=== PATIENT | male | born 1970 | race Caucasian/White ===

== ENCOUNTER 2018-07-08 10:22 | Outpatient (CLI) | payer OTHER, SELFPAY ==
[2018-07-08] VITALS (14 sets, daily range): BP systolic 112–137; BP diastolic 75–99; PULSE 65–86; RESP 16–18; TEMP 36.7; O2SAT 96–100
--- NOTE | 2018-07-08 10:23 | DI.RAD.S_ITS ---
PROCEDURE: PAIN L/S MED/LAT N RFA BILAT INDICATIONS: SPONDYLOSIS FINDINGS: Fluoroscopic spot filming was performed to verify placement of spinal needles at the bilateral L4, L5, and S1 medial branch nerve root regions, as labeled on the films. Appropriate location(s) of the needle tip(s) was confirmed by injection of iodinated contrast. IMPRESSION: 6 point localization was performed, with needle tip localization in the expected position for bilateral L4, L5, and S1 medial branch nerve root rhizotomy procedures. Dictated by: Anthony Godinez M.D. on 07/08/2018 at 12:29 Approved by: Anthony Godinez M.D. on 07/08/2018 at 12:30
[2018-07-08] MEDS: fentaNYL 100 MCG/2 ML INJ 50 MCG IV (11:20)
[2018-07-08] MEDS: MIDAZOLAM 5 MG/5 ML VIAL IV (11:20)
[2018-07-08] MEDS: LIDOCAINE 1% 20 ML INJ 10 ML INJ (11:47)
[2018-07-08] MEDS: BETAMETHASONE 30 MG/5 ML MDV 12 MG INJ (11:48)
[2018-07-08] MEDS: BUPIVACAINE 0.5% (PF) VIAL 2 ML INJ (11:48)
--- NOTE | 2018-07-08 12:07 | PC.NURSE ---
ASSISTING PT OFF TABLE AND TRANSPORTING TO POST PROC AREA IN STABLE CONDITION
--- NOTE | 2018-07-08 12:11 | PM.PROC.1 ---
Procedures Date/Time Date of procedure: 07/08/18 Time of procedure: 12:11 General Procedure description: PREOP DIAGNOSIS 1. RECALCITRANT FACET ARTHROPATHY, POST OP DIAGNOSIS 1. RECALCITRANT FACET ARTHROPATHY PROCEDURES 1. BILATERAL L4 AND L5 MEDIAL BRANCH RADIOFREQUENCY NEUROTOMY AND S1 DORSAL RAMUS BRANCH RADIOFREQUENCY NEUROTOMY, PHYSICIAN: Zak Dunn DO INDICATIONS: Akshat is referred for treatment of facet arthropathy. DESCRIPTION OF PROCEDURE Bilateral L4 and L5 medial branch radiofrequency neurotomy and S1 dorsal ramus radiofrequency neurotomy under fluoroscopy with conscious sedation. The patient is well known to this clinic having undergone previous facet injections with good but temporary relief. The patient has experienced appropriate, concordant relief with previous facet and median branch blocks but the patient's pain has been recalcitrant to further conservative measures. Therefore, based upon the patient's relief and persistent symptoms, the patient is considered an appropriate candidate for facet rhizotomy. All of the patient's questions regarding the risks versus benefits of the procedure, including, but not limited to, bleeding, infection, temporary as well as lasting nerve injury, paralysis, stroke, and , as well treatment alternatives were answered to satisfaction. After obtaining informed consent, denial of pertinent drug allergies, as well as being made aware of the potential risks of bleeding, infection, spinal cord trauma, paralysis, temporary and permanent nerve damage, seizure, stroke, and possible , the patient was brought to the fluoroscopy suite and positioned prone on the fluoroscopy table. The lumbar region was prepped with Betadine and covered with a fenestrated drape in the usual sterile fashion. Appropriate monitors applied including pulse oximeter, pulse, and blood pressure for regular monitoring throughout the procedure. After review of previous anaesthesic history and IV conscious sedation the patient was deemed safe to proceed with todays procedure with IV conscious sedation as ASA class II designation. Safety time-out was performed to confirm patient ID, procedure to be performed and site of procedure. IV sedation was accomplished with a combination of 5mg of Versed and 50mcg of Fentanyl administered by the RN after DO order, titrated to patient comfort during the course of the procedure while the patient remained responsive to all verbal commands. After local infiltration using 1% lidocaine, under fluoroscopic guidance, a 10-cm RF insulated needle with a 10-mm active tip was positioned parallel to the junction of the right sacral ala and the superior articulating process where the S1 dorsal ramus resides. Needle placement was confirmed with sensory stimulation at 50 Hz, with motor stimulation of .5v on the right which produced local stimulation without radicular component. The stimulation was then increased to 1.5v with, once again, only local multifidus stimulation without radicular component. This was then followed by two discreet lesions performed at 80 degrees Celsius for 90 seconds each. The needle was then removed and the identical procedure was performed along the length of the right L5 medial branch with motor stimulation at .7v on the right. The identical procedure was once again performed along the length of the right L4 medial branch with motor stimulation of .5v on the right. The identical procedure was repeated on the left. The patient tolerated the procedure well without signs or symptoms of complications prior to transfer to the recovery area continued monitoring without incident. The patient was then transferred to the recovery area where they were observed for an appropriate period of time after the injection. The patient reported a VAS score of 9 prior to the procedure and a post-procedure VAS of 0. Total Fluoroscopy Time: 22.7 seconds Total Conscious Sedation Time: 34min POST OP INSTRUCTIONS The patient was provided a Pain Log to continue to record the patient's response to the target-specific procedure prior to the patient's follow-up visit with the referring physician. Additionally, specific post-injection care instructions and a contact number to our office were provided if concerns arise regarding possible complications associated with the procedure are suspected. Zak Dunn DO Complications: none
--- NOTE | 2018-07-08 12:19 | PC.NURSE ---
Pt returned post procedure awake and alert via wheelchair. Pt's past monitoring time but resumed care from Hien MCWILLIAMS.
--- NOTE | 2018-07-09 15:32 | PC.NURSE ---
FOLLOW UP CALL MADE, LEFT PHONE MSG WITH CLINIC NUMBER AND HOURS IN CASE OF QUESTIONS/CONCERNS.
== END 2018-07-08 12:31 ==
LOC: RAD 10:23
PROVIDERS: Visit Provider Physical Medicine & Rehabilitation
DX: M47.817 Spondylosis without myelopathy or radiculopathy, lumbosacral region (principal); M47.816 Spondylosis without myelopathy or radiculopathy, lumbar region
CPT/HCPCS: 64635; 64636; 99152; 99153; J0702; J2250; J3010

== ENCOUNTER → 2019-09-01 07:10 | Outpatient (CLI) | payer OTHER, SELFPAY ==
--- NOTE | 2019-09-01 07:12 | DI.RAD.S_ITS ---
PROCEDURE: XR LUMBAR SPINE MIN 4V INDICATIONS: Acute low back pain TECHNIQUE: 5 views of the lumbar spine were acquired. COMPARISON: None. FINDINGS: Bones: 5 nonrib-bearing vertebrae are present. There is normal bony alignment. No vertebral body compression fractures. No suspicious bony lesions. There is a slight degree of degenerative disc height reduction and facet osteoarthritis at L5-S1. Soft tissues: Overlying bowel gas pattern is normal. No suspicious soft tissue calcifications. Oblique images: No pars defects. IMPRESSION: Minimal L5-S1 degenerative changes, no compression fracture or subluxation seen. Dictated by: Anthony Godinez M.D. on 09/01/2019 at 9:29 Approved by: Anthony Godinez M.D. on 09/01/2019 at 9:29
== END ==
PROVIDERS: Referring Provider Physical Medicine & Rehabilitation; Visit Provider Physical Medicine & Rehabilitation
DX: M54.5 Low back pain (principal); M47.817 Spondylosis without myelopathy or radiculopathy, lumbosacral region
CPT/HCPCS: 72110

== ENCOUNTER → 2019-12-22 06:28 | Outpatient (CLI) | payer OTHER, SELFPAY ==
--- NOTE | 2019-12-22 06:30 | DI.MRI.S_ITS ---
PROCEDURE: MR LUMBAR SPINE WO CON INDICATIONS: LBP with radiculopathy TECHNIQUE: Noncontrast sagittal T1 spin echo and T2 fast echo, sagittal STIR, axial T1 and T2 fast spin echo through the lumbar spine. In cases with scoliosis, additional coronal T2 fast spin echo may be performed. COMPARISON: [facility], MR, MR LUMBAR SPINE WO CON, 07/12/2016, 13:50. [facility], CR, XR LUMBAR SPINE MIN 4V, 09/01/2019, 6:13. FINDINGS: Image quality: Excellent. Alignment and Curvature: 5 lumbar type vertebral bodies are present by plain film. There is mild grade 1 retrolisthesis of L2 on L3, L3 on L4, L4 on L5, and L5 on S1. Bone Marrow: Marrow is of normal overall signal. No acute vertebral body compression fractures. There is mild reactive signal within the endplates adjacent to the L2-L3 and L3-L4 intervertebral discs. Spinal Cord: Conus medullaris terminates at the T12-L1 disc space level. Visualized cord demonstrates normal signal and size. Paraspinous Soft Tissues: No paravertebral masses. L1-L2: Mild diffuse disc bulge. Mild facet and ligamentum flavum hypertrophy. Mild epidural lipomatosis. Mild canal stenosis. Mild bilateral foraminal stenosis. L2-L3: Moderate disc height loss and desiccation. Mild diffuse disc bulge with superimposed right paracentral protrusion. Mild facet and ligamentum flavum hypertrophy. Mild epidural lipomatosis. There is increased, moderate canal stenosis. There is no change in mild bilateral foraminal stenosis. There is posterior deviation and compression of the right L3 nerve root, new since the prior examination. L3-L4: Moderate disc height loss and desiccation. Mild diffuse disc bulge with superimposed left posterolateral protrusion. Mild facet and ligamentum flavum hypertrophy. Mild epidural lipomatosis. Mild canal stenosis. Moderate left greater than right foraminal stenosis. No change. L4-L5: Moderate disc height loss and desiccation. Mild diffuse disc bulge. Mild facet and ligamentum flavum hypertrophy. Mild epidural lipomatosis. Mild canal stenosis. Mild right and moderate left foraminal stenosis. No change. L5-S1: Moderate disc height loss and desiccation. Mild diffuse disc bulge. Mild bilateral facet hypertrophy. No significant canal stenosis. Mild bilateral foraminal stenosis. IMPRESSION: 1. Multilevel degenerative disc and facet disease, as well as ligamentum flavum hypertrophy and epidural lipomatosis. 2. Multilevel canal stenosis, worst at L2-L3, where there is increased, moderate canal stenosis. There is associated compression of the right L3 nerve root. Recommend correlation with clinical symptoms to ascertain relevance of this finding. 3. Multilevel foraminal stenoses, worst at L3-L4 and L4-L5, where there are moderate foraminal stenosis as described above. Dictated by: Jose Arvizu M.D. on 12/22/2019 at 8:30 Approved by: Jose Arvizu M.D. on 12/22/2019 at 8:34
== END ==
PROVIDERS: Referring Provider Physical Medicine & Rehabilitation; Visit Provider Physical Medicine & Rehabilitation
DX: M51.16 Intervertebral disc disorders with radiculopathy, lumbar region (principal); M48.061 Spinal stenosis, lumbar region without neurogenic claudication; E88.2 Lipomatosis, not elsewhere classified
CPT/HCPCS: 72148

== ENCOUNTER → 2020-01-23 08:30 | Outpatient (CLI) | payer OTHER, SELFPAY ==
[2020-01-25 02:08] LABS: COVID19 Sendout Not Detected (Not Detect)
== END ==
PROVIDERS: Visit Provider Student in an Organized Health Care Education/Training Program
DX: Z11.59 Encounter for screening for other viral diseases (principal)
CPT/HCPCS: 87635

== ENCOUNTER 2020-01-26 08:16 | Outpatient (CLI) | payer OTHER, SELFPAY ==
[2020-01-26] VITALS (18 sets, daily range): BP systolic 119–191; BP diastolic 70–98; PULSE 58–76; RESP 8–20; O2SAT 95–100
--- NOTE | 2020-01-26 08:17 | DI.RAD.S_ITS ---
PROCEDURE: PAIN L/S TRANSFORAMINAL INJECT INDICATIONS: SPONDYLOSIS COMPARISON: None. FINDINGS: Fluoroscopic spot filming was performed to verify placement of spinal needles at the L3-4 left-sided level(s), as labeled on the films. Appropriate location(s) of the needle tip(s) was confirmed by injection of iodinated contrast. IMPRESSION: Left L3-4 nasal tip localization for transforaminal epidural steroid injection. Dictated by: Anhtony Godinez M.D. on 01/26/2020 at 11:08 Approved by: Anthony Godinez M.D. on 01/26/2020 at 11:08
[2020-01-26] MEDS: fentaNYL 100 MCG/2 ML INJ 50 MCG IV (09:14)
[2020-01-26] MEDS: IOPAMIDOL 15 ML VIAL 3 ML INJ (09:17)
[2020-01-26] MEDS: MIDAZOLAM 5 MG/5 ML VIAL IV (09:17)
[2020-01-26] MEDS: BUPIVACAINE 0.25% (PF) VIAL 2 ML INJ (09:17)
[2020-01-26] MEDS: DEXAMETHASONE 10 MG/ML VIAL 20 MG INJ (09:18)
[2020-01-26] MEDS: BETAMETHASONE 30 MG/5 ML MDV 6 MG INJ (09:18)
--- NOTE | 2020-01-26 09:28 | PM.PROC.IR.1 ---
Date/Time/Diagnoses Date of procedure: 01/26/20 Time of procedure: 09:28 Pre-procedure diagnosis: 1. FORAMINAL STENOSIS WITH LE SYMPTOMS Post-procedure diagnosis: same Procedure Notes Procedure: 1. FLUOROSCOPICALLY GUIDED CONTRAST CONTROLLED TRANSFORAMINAL EPIDURAL STEROID INJECTION - LEFT L3/4 TFESI Indications: Akshat is referred for treatment of HNP with left LE Symptoms Physician: Zak Dunn Total Fluoroscopy time (seconds): 9 Total sedation minutes: 9 Complications: none Procedure in detail & Post-procedure care: FINDINGS Foraminal Nerve Root Compression secondary to disc disease and facet hypertrophy DESCRIPTION OF PROCEDURE Following review of allergy and review of potential side effects and complications, including, but not necessarily limited to, infection, allergic reaction, local tissue breakdown, stroke, temporary or permanent nerve injury, paralysis, and possible , the patient indicated that the patient understood and agreed to proceed. An informed consent document was signed by the patient, witnessed by a nurse, and placed in the patient's chart. Additionally, other treatment options including medications, modalities, and physical therapy were reviewed with the patient. After review of previous anaesthesic history and IV conscious sedation the patient was deemed safe to proceed with today?s procedure with IV conscious sedation as ASA class II designation. Safety time-out was performed to confirm patient ID, procedure to be performed and site of procedure. IV sedation was accomplished with a combination of 2mg of Versed and 50mcg of Fentanyl was administered by the RN after DO order, titrated to patient comfort during the course of the procedure while the patient remained responsive to all verbal commands In the prone position following sterile prep and drape of the lumbar region, the left L3/4 posterior neuroforamen was identified fluoroscopically. The skin was anesthetized via a 25-gauge 1.5-inch needle with 1% lidocaine solution. At this point, a 25-gauge 3.5-inch spinal needle was atraumatically introduced and advanced under fluoroscopic guidance through the posterior left L3/4 neuroforamen to approximately the anterior aspect of the canal. Depth was confirmed on lateral view. Following negative aspiration, injection of approximately 1.5 cc of Isovue 200 under live fluoroscopy in the AP view confirmed excellent flow along the nerve root, into the epidural space without vascular or intrathecal uptake observed Radiological data, including multiple fluoroscopic views of the lumbosacral spine, reveal a spinal needle at the left L3/4 posterior neuroforamen. Subsequent views show flow of contrast material flowing superiorly and inferiorly along the nerve root confirming epidural flow. Subsequently, a test dose of 1.5cc of 1% lidocaine solution was administered and patient was observed for two minutes for signs or symptoms of complications, including abdominal pain, shortness of breath, bilateral upper or lower extremity weakness, nausea and vomiting, prior to steroid injection. At this point, a total of 3cc or 20mg of dexamethasone and 6mg betamethasone was injected without incident. The patient tolerated the procedure well without signs or symptoms of complications prior to transfer to the recovery area continued monitoring without incident. The patient was then transferred to the recovery area where they were observed for an appropriate time after the injection. The patient reported a VAS score of 7 prior to the procedure and a post-procedure VAS of 0. POST OP INSTRUCTIONS The patient was provided a Pain Log to continue to record their response to the target-specific procedure prior to follow-up visit with their referring physician. Additionally, specific post-injection care instructions and a contact number to our office were provided if concerns arise regarding possible complications associated with the procedure are suspected.
[2020-01-26] MEDS: ONDANSETRON 4 MG/2 ML INJ IV ×2 (09:41→11:30)
[2020-01-26] MEDS: SODIUM CHLORIDE 0.9% 500 ML 1000 ML IV (11:26)
== END 2020-01-26 12:00 | disposition home or self-care (01) ==
PROVIDERS: Referring Provider Physical Medicine & Rehabilitation; Visit Provider Physical Medicine & Rehabilitation
DX: M48.061 Spinal stenosis, lumbar region without neurogenic claudication (principal); M51.16 Intervertebral disc disorders with radiculopathy, lumbar region
CPT/HCPCS: 64483; J0702; J1100; J2250; J2405; J3010

== ENCOUNTER 2022-04-10 08:40 | Outpatient (CLI) | payer OTHER, SELFPAY ==
[2022-04-10] VITALS (10 sets, daily range): BP systolic 120–138; BP diastolic 66–91; PULSE 74–96; RESP 11–20; TEMP 36.6; O2SAT 94–100
--- NOTE | 2022-04-10 08:41 | DI.RAD.S_ITS ---
PROCEDURE: PAIN L/S FACET INJ/BLK 1ST TASH COMPARISON: [facility], MR, MR LUMBAR SPINE WO CON, 12/22/2019, 7:04. INDICATIONS: SPONDYLOSIS FINDINGS: Fluoroscopic spot filming was performed to verify placement of spinal needles on both sides at the L4, L5, and S1 levels, as labeled on the films. Appropriate location of the needle tips was confirmed by injection of iodinated contrast. IMPRESSION: Intraprocedural examination demonstrating appropriate positions of the needles. Dictated by: Adrián Middleton M.D. on 04/10/2022 at 14:52 Approved by: Adrián Middleton M.D. on 04/10/2022 at 14:52
[2022-04-10] MEDS: MIDAZOLAM 2 MG/2 ML VIAL 4 MG IV (09:19)
[2022-04-10] MEDS: IOPAMIDOL 15 ML VIAL 3 ML INJ (09:20)
[2022-04-10] MEDS: BUPIVACAINE 0.5% (PF) 30 ML VIAL 5 ML INJ (09:21)
[2022-04-10] MEDS: LIDOCAINE 1% (PF) 5 ML INJ (09:21)
--- NOTE | 2022-04-10 09:37 | P.PCN_ITS ---
Date/Time/Diagnoses Date of procedure: 04/10/22 Time of procedure: 09:37 Pre-procedure diagnosis: 1. FACET ARTHROPATHY Post-procedure diagnosis: same Procedure Notes Procedure: 1. BILATERAL- L4, L5 and S1 DIAGNOSTIC MB BLOCKS with LA Anesthetic Indications: Akshat is referred for treatment of Bilateral Axial LBP. Physician: Zak Dunn Total Fluoroscopy time (seconds): 13 Total sedation minutes: 17 Complications: none Procedure in detail & Post-procedure care: DESCRIPTION OF PROCEDURE Fluoroscopically guided, contrast-controlled bilateral L4, L5 and S1 medial branch blocks with 0.5cc of 0.5% Marcaine. Following review of allergy and review of potential side effects and complications, including, but not necessarily limited to, infection, allergic reaction, local tissue breakdown, nerve injury, paralysis, stroke and possible , the patient indicated that the patient understood and agreed to proceed. An informed consent document was signed by the patient, witnessed by a nurse, and placed in the patient's chart. After review of previous anaesthesic history and IV conscious sedation the patient was deemed safe to proceed with today's procedure with IV conscious sedation as ASA class II designation. Safety time-out was performed to confirm patient ID, procedure to be performed and site of procedure. IV sedation was accomplished with a combination of 4mg of Versed was administered by the RN after DO order, titrated to patient comfort during the course of the procedure while the patient remained responsive to all verbal commands In the prone position, following sterile prep and drape of the lumbar region, the right L4, L5 and S1 anatomical location of the medial branch of the dorsal ramus was identified fluoroscopically. Subsequently an anesthetic skin wheal using 1% lidocaine solution was initiated at each of the anatomical spots. Subsequently then a 22-gauge 3.5-inch spinal needle was atraumatically introduced and advanced under fluoroscopic guidance at each of the corresponding sites at the right L4, L5 and S1 MB. After negative aspiration, 0.2cc of Isovue 200 was injected, confirming placement without vascular or intrathecal uptake. Subsequently then 0.5cc of 0.5% Marcaine solution was injected at each of the corresponding sites at the right L4, L5 and S1 medial branch locations. The identical procedure was replicated on the left. The patient tolerated the procedure well without signs or symptoms of complications prior to transfer to the recovery area continued monitoring without incident. Post-procedure, the patient was monitored initiating provocative activities to measure the amount of relief from block of the facetogenic pain. The patient reported a VAS of 7 prior to the procedure and a post-procedure VAS of 1. It has been a pleasure to assist in the diagnostic and therapeutic care of your patient. POST OP INSTRUCTIONS The patient was provided with a Pain Log to complete over the next several hours and subsequent days prior to the patient's follow up with the ordering physician. If the patient has assistant art director relief to the solution applied, then they may be a candidate for medial branch rhizotomy. The patient is aware, was provided, once again, with a Pain Log and will follow up with the referring physician for review and clinical correlation
== END 2022-04-10 09:58 | disposition home or self-care (01) ==
PROVIDERS: Referring Provider Physical Medicine & Rehabilitation; Visit Provider Physical Medicine & Rehabilitation
DX: M47.816 Spondylosis without myelopathy or radiculopathy, lumbar region (principal); M47.817 Spondylosis without myelopathy or radiculopathy, lumbosacral region
CPT/HCPCS: 64493; 64494; 99152; J2250

== ENCOUNTER 2022-06-28 07:56 | Outpatient (CLI) | payer OTHER, SELFPAY ==
--- NOTE | 2022-06-28 07:57 | DI.RAD.S_ITS ---
PROCEDURE: PAIN L INTERLAMINAR/CAUDAL INJ INDICATIONS: SPONDYLOSIS COMPARISON: None. FINDINGS: Fluoroscopic spot filming was performed to verify placement of spinal needles at the L4-5 level(s), as labeled on the films. Appropriate location(s) of the needle tip(s) was confirmed by injection of iodinated contrast. IMPRESSION: Intraprocedural fluoroscopy was provided for guidance and anatomical localization. Please see the procedure report for further details. Dictated by: Anirudh Marrero M.D. on 06/28/2022 at 17:15 Approved by: Anirudh Marrero M.D. on 06/28/2022 at 17:16
[2022-06-28 08:10] VITALS: BP 129/87; PULSE 63; RESP 20; TEMP 36.6; O2SAT 98
[2022-06-28 09:25] VITALS: BP 135/83; PULSE 62; RESP 12; O2SAT 100
[2022-06-28] MEDS: MIDAZOLAM 2 MG/2 ML VIAL IV (09:28)
[2022-06-28 09:30] VITALS: BP 127/72; PULSE 69; RESP 20; O2SAT 100
[2022-06-28] MEDS: DEXAMETHASONE 10 MG/ML VIAL 20 MG INJ (09:32)
[2022-06-28] MEDS: methylPREDNISolone acetate 80 MG/ML VIAL INJ (09:32)
[2022-06-28] MEDS: BUPIVACAINE 0.25% (PF) VIAL 2 ML INJ (09:32)
[2022-06-28] MEDS: IOPAMIDOL 15 ML VIAL 3 ML INJ (09:33)
--- NOTE | 2022-06-28 09:42 | P.PCN_ITS ---
Date/Time/Diagnoses Date of procedure: 06/28/22 Time of procedure: 09:42 Pre-procedure diagnosis: 1. HNP WITH RADICULAR FEATURES, 2. MULTILEVEL CENTRAL STENOSIS, Post-procedure diagnosis: same Procedure Notes Procedure: 1. FLUOROSCOPICALLY GUIDED CONTRAST CONTROLLED INTERLAMINAR EPIDURAL STEROID INJECTION -L4/5 Indications: Akshat is referred for treatment of HNP R>L LE symptoms. Physician: Zak Dunn Total Fluoroscopy time (seconds): 8 Total sedation minutes: 9 Complications: none Procedure in detail & Post-procedure care: FINDINGS Multilevel Central Spinal Stenosis with Nerve Root Compression DESCRIPTION OF PROCEDURE Fluoroscopically guided, contrast-controlled L4/5 translaminar epidural steroid injection. Following review of allergy and review of potential side effects and complications, including, but not necessarily limited to, infection, allergic reaction, local tissue breakdown, temporary as well as permanent nerve injury, paralysis, stroke and possible , the patient indicated that the patient understood and agreed to proceed. An informed consent document was signed by the patient, witnessed by a nurse, and placed in the patient's chart. Additionally, other treatment options including modalities, medications, and physical therapy were reviewed with the patient. After review of previous anaesthesic history and IV conscious sedation the p atient was deemed safe to proceed with today?s procedure with IV conscious sedation as ASA class II designation. Safety time-out was performed to confirm patient ID, procedure to be performed and site of procedure. IV sedation was accomplished with a combination of 2mg of Versed was administered by the RN after DO order, titrated to patient comfort during the course of the procedure while the patient remained responsive to all verbal commands In the prone position, following sterile prep and drape of the lumbar region, the L4/5 translaminar space was identified fluoroscopically. The skin was anesthetized via a 25-gauge, 1.5inch needle with 1% lidocaine solution. At this point, a 22-gauge short bevel spinal needle was atraumatically introduced and advanced under fluoroscopic guidance into the region of the L4/5 translaminar space. Depth was confirmed on lateral view. Radiological data, including multiple fluoroscopic views of the lumbar spine, reveal a spinal needle at the L4/5 translaminar space. Lateral views then show placement of the needle in the epidural space. Subsequent views show contrast material flowing superiorly and inferiorly in the epidural space. No vascular or intrathecal uptake is observed. At this point, using loss of resistance technique with saline and air, the epidural space was entered. This was confirmed following negative aspiration with injection of approximately 1.5cc of Isovue 200, showing excellent epidural flow without vascular or intrathecal uptake. At this point, 1cc of 1% lidocaine solution combined with 3cc or 20mg of dexamethasone and 80 depo medrol was injected without incident. The patient tolerated the procedure well without signs or symptoms of complications prior to transfer to the recovery area continued monitoring without incident. The patient was then transferred to the recovery area where they were observed for an appropriate period of time after the injection. The patient reported a VAS score of 6 prior to the procedure and a post- procedure VAS of 0. POST OP INSTRUCTIONS The patient was provided a Pain Log to continue to record their response to the target-specific procedure prior to follow-up visit with their referring physician. Additionally, specific post-injection care instructions and a contact number to our office were provided if concerns arise regarding possible complications associated with the procedure are suspected.
[2022-06-28 09:45] VITALS: BP 125/79; PULSE 76; RESP 15; O2SAT 97
[2022-06-28 09:50] VITALS: BP 125/85; PULSE 72; RESP 14; O2SAT 97
[2022-06-28 09:55] VITALS: BP 125/86; PULSE 65; RESP 19; O2SAT 98
== END 2022-06-28 10:02 | disposition home or self-care (01) ==
PROVIDERS: Referring Provider Physical Medicine & Rehabilitation; Visit Provider Physical Medicine & Rehabilitation
DX: M51.16 Intervertebral disc disorders with radiculopathy, lumbar region (principal); M48.061 Spinal stenosis, lumbar region without neurogenic claudication
CPT/HCPCS: 62323; J1040; J1100; J2250; J3490

== ENCOUNTER 2022-09-20 07:59 | Outpatient (CLI) | payer OTHER, SELFPAY ==
--- NOTE | 2022-09-20 08:01 | DI.RAD.S_ITS ---
PROCEDURE: PAIN L/S TRANSFORAMINAL INJECT INDICATIONS: SPONDYLOSIS COMPARISON: [facility], CR, XR LUMBAR SPINE 2 OR 3 VIEWS, 08/13/2022, 15:26. FINDINGS: Fluoroscopic spot filming was performed to verify placement of spinal needles at the L3-L4 level(s), as labeled on the films. Appropriate location(s) of the needle tip(s) was confirmed by injection of iodinated contrast. IMPRESSION: Fluoroscopy for pain management. Dictated by: Rod Desai M.D. on 09/20/2022 at 10:07 Approved by: Rod Desai M.D. on 09/20/2022 at 10:08
[2022-09-20 08:10] VITALS: BP 135/79; PULSE 74; RESP 19; TEMP 36.7; O2SAT 100
[2022-09-20 09:12] VITALS: BP 101/60; PULSE 74; RESP 16; O2SAT 98
[2022-09-20] MEDS: BUPIVACAINE 0.25% (PF) VIAL 2 ML INJ (09:13)
[2022-09-20] MEDS: methylPREDNISolone acetate 80 MG/ML VIAL INJ (09:13)
[2022-09-20] MEDS: DEXAMETHASONE 10 MG/ML VIAL 20 MG INJ (09:13)
[2022-09-20] MEDS: IOPAMIDOL 15 ML VIAL 3 ML INJ (09:14)
[2022-09-20 09:17] VITALS: BP 91/55; PULSE 82; RESP 17; O2SAT 96
[2022-09-20 09:21] VITALS: BP 126/80; PULSE 74; RESP 16; O2SAT 97
--- NOTE | 2022-09-20 09:23 | PM.PROC.IR.1 ---
Date/Time/Diagnoses Date of procedure: 09/20/22 Time of procedure: 09:23 Pre-procedure diagnosis: 1. FORAMINAL STENOSIS WITH LE SYMPTOMS Post-procedure diagnosis: same Procedure Notes Procedure: 1. FLUOROSCOPICALLY GUIDED CONTRAST CONTROLLED TRANSFORAMINAL EPIDURAL STEROID INJECTION - LEFT L3/4 TFESI Indications: Akshat is referred by Dr. Shine for treatment of Foraminal Stenosis with left LE Symptoms Physician: Zak Dunn Total Fluoroscopy time (seconds): 11 Total sedation minutes: 0 Complications: none Procedure in detail & Post-procedure care: FINDINGS Foraminal Nerve Root Compression secondary to disc disease and facet hypertrophy DESCRIPTION OF PROCEDURE Following review of allergy and review of potential side effects and complications, including, but not necessarily limited to, infection, allergic reaction, local tissue breakdown, stroke, temporary or permanent nerve injury, paralysis, and possible , the patient indicated that the patient understood and agreed to proceed. An informed consent document was signed by the patient, witnessed by a nurse, and placed in the patient's chart. Additionally, other treatment options including medications, modalities, and physical therapy were reviewed with the patient. After review of previous anaesthesic history and IV conscious sedation the patient was deemed safe to proceed with today?s procedure with IV conscious sedation as ASA class II designation. Safety time-out was performed to confirm patient ID, procedure to be performed and site of procedure. IV sedation was deemed unnecessary and thus not administered by the RN after DO order, titrated to patient comfort during the course of the procedure while the patient remained responsive to all verbal commands In the prone position following sterile prep and drape of the lumbar region, the left L3/4 posterior neuroforamen was identified fluoroscopically. The skin was anesthetized via a 25-gauge 1.5-inch needle with 1% lidocaine solution. At this point, a 25-gauge 3.5-inch spinal needle was atraumatically introduced and advanced under fluoroscopic guidance through the posterior left L3/4 neuroforamen to approximately the anterior aspect of the canal. Depth was confirmed on lateral view. Following negative aspiration, injection of approximately 1.5 cc of Isovue 200 under live fluoroscopy in the AP view confirmed excellent flow along the nerve root, into the epidural space without vascular or intrathecal uptake observed Radiological data, including multiple fluoroscopic views of the lumbosacral spine, reveal a spinal needle at the left L3/4 posterior neuroforamen. Subsequent views show flow of contrast material flowing superiorly and inferiorly along the nerve root confirming epidural flow. Subsequently, a test dose of 1.5cc of 1% lidocaine solution was administered and patient was observed for two minutes for signs or symptoms of complications, including abdominal pain, shortness of breath, bilateral upper or lower extremity weakness, nausea and vomiting, prior to steroid injection. At this point, a total of 3cc or 20mg of dexamethasone and 80mg depo medrol was injected without incident. The patient tolerated the procedure well without signs or symptoms of complications prior to transfer to the recovery area continued monitoring without incident. The patient was then transferred to the recovery area where they were observed for an appropriate time after the injection. The patient reported a VAS score of 7 prior to the procedure and a post-procedure VAS of 0. POST OP INSTRUCTIONS The patient was provided a Pain Log to continue to record their response to the target-specific procedure prior to follow-up visit with their referring physician. Additionally, specific post-injection care instructions and a contact number to our office were provided if concerns arise regarding possible complications associated with the procedure are suspected.
== END 2022-09-20 09:29 | disposition home or self-care (01) ==
LOC: RAD 08:00
PROVIDERS: Referring Provider Physical Medicine & Rehabilitation; Visit Provider Physical Medicine & Rehabilitation
DX: M48.061 Spinal stenosis, lumbar region without neurogenic claudication (principal); M51.16 Intervertebral disc disorders with radiculopathy, lumbar region; M47.26 Other spondylosis with radiculopathy, lumbar region
CPT/HCPCS: 64483; J0702; J1040; J1100; J3490

== ENCOUNTER 2023-05-14 14:46 | Outpatient (CLI) | payer OTHER, SELFPAY ==
[2023-05-14] VITALS (9 sets, daily range): BP systolic 110–132; BP diastolic 65–92; PULSE 60–71; RESP 12–20; TEMP 36; O2SAT 99–100
--- NOTE | 2023-05-14 15:30 | DI.RAD.S_ITS ---
PROCEDURE: PAIN L/S TRANSFORAMINAL INJECT INDICATIONS: SPONDYLOSIS COMPARISON: [facility], , PAIN L/S TRANSFORAMINAL INJECT, 09/20/2022, 9:12. FINDINGS: Fluoroscopic spot filming was performed to verify placement of a spinal needle at the L3-L4 level, as labeled on the films. Appropriate location of the needle tip was confirmed by injection of iodinated contrast. IMPRESSION: Intraprocedural examination within normal limits. Dictated by: Adrián Middleton M.D. on 05/14/2023 at 16:48 Approved by: Adrián Middleton M.D. on 05/14/2023 at 16:48
--- NOTE | 2023-05-14 16:14 | PM.PROC.IR.1 ---
Date/Time/Diagnoses Date of procedure: 05/14/23 Time of procedure: 16:31 Pre-procedure diagnosis: 1. FORAMINAL STENOSIS WITH LE SYMPTOMS Post-procedure diagnosis: same Procedure Notes Procedure: 1. FLUOROSCOPICALLY GUIDED CONTRAST CONTROLLED TRANSFORAMINAL EPIDURAL STEROID INJECTION - LEFT L3/4 TFESI Indications: Akshat is referred for treatment of Foraminal Stenosis with left LE Symptoms Physician: Zak Dunn Total Fluoroscopy time (seconds): 11 Total sedation minutes: 12 Complications: none Procedure in detail & Post-procedure care: FINDINGS Foraminal Nerve Root Compression secondary to disc disease and facet hypertrophy DESCRIPTION OF PROCEDURE Following review of allergy and review of potential side effects and complications, including, but not necessarily limited to, infection, allergic reaction, local tissue breakdown, stroke, temporary or permanent nerve injury, paralysis, and possible , the patient indicated that the patient understood and agreed to proceed. An informed consent document was signed by the patient, witnessed by a nurse, and placed in the patient's chart. Additionally, other treatment options including medications, modalities, and physical therapy were reviewed with the patient. After review of previous anaesthesic history and IV conscious sedation the patient was deemed safe to proceed with today?s procedure with IV conscious sedation as ASA class II designation. Safety time-out was performed to confirm patient ID, procedure to be performed and site of procedure. IV sedation was accomplished with a combination of 2mg of Versed was administered by the RN after DO order, titrated to patient comfort during the course of the procedure while the patient remained responsive to all verbal commands In the prone position following sterile prep and drape of the lumbar region, the left L3/4 posterior neuroforamen was identified fluoroscopically. The skin was anesthetized via a 25-gauge 1.5-inch needle with 1% lidocaine solution. At this point, a 25-gauge 3.5-inch spinal needle was atraumatically introduced and advanced under fluoroscopic guidance through the posterior left L3/4 neuroforamen to approximately the anterior aspect of the canal. Depth was confirmed on lateral view. Following negative aspiration, injection of approximately 1.5 cc of Isovue 200 under live fluoroscopy in the AP view confirmed excellent flow along the nerve root, into the epidural space without vascular or intrathecal uptake observed Radiological data, including multiple fluoroscopic views of the lumbosacral spine, reveal a spinal needle at the left L3/4 posterior neuroforamen. Subsequent views show flow of contrast material flowing superiorly and inferiorly along the nerve root confirming epidural flow. Subsequently, a test dose of 1.5cc of 1% lidocaine solution was administered and patient was observed for two minutes for signs or symptoms of complications, including abdominal pain, shortness of breath, bilateral upper or lower extremity weakness, nausea and vomiting, prior to steroid injection. At this point, a total of 2cc or 10mg of dexamethasone and 6mg betamethasone was injected without incident. The patient tolerated the procedure well without signs or symptoms of complications prior to transfer to the recovery area continued monitoring without incident. The patient was then transferred to the recovery area where they were observed for an appropriate time after the injection. The patient reported a VAS score of 7 prior to the procedure and a post-procedure VAS of 0. POST OP INSTRUCTIONS The patient was provided a Pain Log to continue to record their response to the target-specific procedure prior to follow-up visit with their referring physician. Additionally, specific post-injection care instructions and a contact number to our office were provided if concerns arise regarding possible complications associated with the procedure are suspected.
[2023-05-14] MEDS: MIDAZOLAM 2 MG/2 ML VIAL IV (16:16)
[2023-05-14] MEDS: BETAMETHASONE 30 MG/5 ML MDV 6 MG INJ (16:21)
[2023-05-14] MEDS: DEXAMETHASONE 10 MG/ML VIAL INJ (16:23)
[2023-05-14] MEDS: BUPIVACAINE 0.25% (PF) VIAL 2 ML INJ (16:23)
[2023-05-14] MEDS: iopamidoL 15 ML VIAL 3 ML INJ (16:23)
--- NOTE | 2023-05-16 14:34 | PC.NURSE ---
Patient called by this nurse to check in to see how he was doing since his lumbar injection on 05/14/23. No answer. This nurse left a message reminding him to call the clinic's phone number that is on the green discharge sheet if he has any questions or concerns.
== END 2023-05-14 16:52 | disposition home or self-care (01) ==
LOC: RAD 14:47
PROVIDERS: Referring Provider Physical Medicine & Rehabilitation; Visit Provider Physical Medicine & Rehabilitation
DX: M48.061 Spinal stenosis, lumbar region without neurogenic claudication (principal); M51.16 Intervertebral disc disorders with radiculopathy, lumbar region
CPT/HCPCS: 64483; 99152; J0702; J1100; J2250; J3490

== ENCOUNTER 2023-06-18 08:37 | Outpatient (CLI) | payer OTHER, SELFPAY ==
[2023-06-18] VITALS (8 sets, daily range): BP systolic 114–143; BP diastolic 58–82; PULSE 66–78; RESP 12–20; TEMP 36.3; O2SAT 95–99
--- NOTE | 2023-06-18 09:15 | DI.RAD.S_ITS ---
PROCEDURE: PAIN L/S TRANSFORAMINAL INJECT INDICATIONS: lumbar radiculopathy COMPARISON: [facility], , PAIN L/S TRANSFORAMINAL INJECT, 05/14/2023, 17:19. FINDINGS: Fluoroscopic spot filming was performed to verify placement of spinal needles at the right L3-4 level(s), as labeled on the films. Appropriate location(s) of the needle tip(s) was confirmed by injection of iodinated contrast. IMPRESSION: Fluoroscopic support for right L3-4 transforaminal epidural steroid injection. Please see separate procedure note for further details. Dictated by: Nick Garcias M.D. on 06/18/2023 at 12:06 Approved by: Nick Garcias M.D. on 06/18/2023 at 12:07
[2023-06-18] MEDS: MIDAZOLAM 2 MG/2 ML VIAL IV (09:22)
[2023-06-18] MEDS: DEXAMETHASONE 10 MG/ML VIAL INJ (09:28)
[2023-06-18] MEDS: iopamidoL 15 ML VIAL 3 ML INJ (09:28)
[2023-06-18] MEDS: BUPIVACAINE 0.25% (PF) VIAL 2 ML INJ (09:28)
[2023-06-18] MEDS: BETAMETHASONE 30 MG/5 ML MDV 6 MG INJ (09:29)
--- NOTE | 2023-06-18 09:42 | PM.PROC.IR.1 ---
Date/Time/Diagnoses Date of procedure: 06/18/23 Time of procedure: 09:42 Pre-procedure diagnosis: 1. FORAMINAL STENOSIS WITH LE SYMPTOMS Post-procedure diagnosis: same Procedure Notes Procedure: 1. FLUOROSCOPICALLY GUIDED CONTRAST CONTROLLED TRANSFORAMINAL EPIDURAL STEROID INJECTION - RIGHT L3/4 TFESI Indications: Akshat is referred for treatment of Foraminal Stenosis with right LE Symptoms Physician: Zak Dunn Total Fluoroscopy time (seconds): 11 Total sedation minutes: 16 Complications: none Procedure in detail & Post-procedure care: FINDINGS Foraminal Nerve Root Compression secondary to disc disease and facet hypertrophy DESCRIPTION OF PROCEDURE Following review of allergy and review of potential side effects and complications, including, but not necessarily limited to, infection, allergic reaction, local tissue breakdown, stroke, temporary or permanent nerve injury, paralysis, and possible , the patient indicated that the patient understood and agreed to proceed. An informed consent document was signed by the patient, witnessed by a nurse, and placed in the patient's chart. Additionally, other treatment options including medications, modalities, and physical therapy were reviewed with the patient. After review of previous anaesthesic history and IV conscious sedation the patient was deemed safe to proceed with today?s procedure with IV conscious sedation as ASA class II designation. Safety time-out was performed to confirm patient ID, procedure to be performed and site of procedure. IV sedation was accomplished with a combination of 2mg of Versed was administered by the RN after DO order, titrated to patient comfort during the course of the procedure while the patient remained responsive to all verbal commands In the prone position following sterile prep and drape of the lumbar region, the right L3/4 posterior neuroforamen was identified fluoroscopically. The skin was anesthetized via a 25-gauge 1.5-inch needle with 1% lidocaine solution. At this point, a 25-gauge 3.5-inch spinal needle was atraumatically introduced and advanced under fluoroscopic guidance through the posterior right L3/4 neuroforamen to approximately the anterior aspect of the canal. Depth was confirmed on lateral view. Following negative aspiration, injection of approximately 1.5 cc of Isovue 200 under live fluoroscopy in the AP view confirmed excellent flow along the nerve root, into the epidural space without vascular or intrathecal uptake observed Radiological data, including multiple fluoroscopic views of the lumbosacral spine, reveal a spinal needle at the right L3/4 posterior neuroforamen. Subsequent views show flow of contrast material flowing superiorly and inferiorly along the nerve root confirming epidural flow. Subsequently, a test dose of 1.5 cc of 1% lidocaine solution was administered and patient was observed for two minutes for signs or symptoms of complications, including abdominal pain, shortness of breath, bilateral upper or lower extremity weakness, nausea and vomiting, prior to steroid injection. At this point, a total of 2cc or 10mg of dexamethasone and 6mg of betamethasone was injected without incident. The patient tolerated the procedure well without signs or symptoms of complications prior to transfer to the recovery area continued monitoring without incident. The patient was then transferred to the recovery area where they were observed for an appropriate time after the injection. The patient reported a VAS score of 7 prior to the procedure and a post-procedure VAS of 0. POST OP INSTRUCTIONS The patient was provided a Pain Log to continue to record their response to the target-specific procedure prior to follow-up visit with their referring physician. Additionally, specific post-injection care instructions and a contact number to our office were provided if concerns arise regarding possible complications associated with the procedure are suspected.
--- NOTE | 2023-06-18 11:30 | PC.NURSE ---
1110 Patient up with SBA only, able to walk without weakness or unsteadiness. Dr. Dunn at [facility], or for discharge.
== END 2023-06-18 11:27 | disposition home or self-care (01) ==
PROVIDERS: Referring Provider Physical Medicine & Rehabilitation; Visit Provider Physical Medicine & Rehabilitation
DX: M48.061 Spinal stenosis, lumbar region without neurogenic claudication (principal); M51.16 Intervertebral disc disorders with radiculopathy, lumbar region; M47.26 Other spondylosis with radiculopathy, lumbar region
CPT/HCPCS: 64483; 99152; J0702; J1100; J2250; J3490

== ENCOUNTER 2023-09-03 08:04 | Outpatient (CLI) | payer OTHER, SELFPAY ==
[2023-09-03 08:43] VITALS: BP 126/78; PULSE 60; RESP 14; TEMP 36.5; O2SAT 99
--- NOTE | 2023-09-03 08:45 | DI.RAD.S_ITS ---
PROCEDURE: PAIN L/S TRANSFORAMINAL INJECT INDICATIONS: Left L4-5 transforaminal BOBBY COMPARISON: [facility], , PAIN L/S TRANSFORAMINAL INJECT, 06/18/2023, 9:27. FINDINGS: Fluoroscopic spot filming was performed to verify placement of spinal needles at the left L4-5 level(s), as labeled on the films. Appropriate location(s) of the needle tip(s) was confirmed by injection of iodinated contrast. IMPRESSION: Intraoperative fluoroscopy for left transforaminal BOBBY. Dictated by: Flor Benz M.D. on 09/03/2023 at 14:13 Approved by: Flor Benz M.D. on 09/03/2023 at 14:13
[2023-09-03 08:57] VITALS: BP 137/88; PULSE 61; RESP 16; O2SAT 99
[2023-09-03 09:00] VITALS: BP 129/82; PULSE 57; RESP 13; O2SAT 100
[2023-09-03] MEDS: DEXAMETHASONE 10 MG/ML VIAL INJ (09:03)
[2023-09-03] MEDS: BETAMETHASONE 30 MG/5 ML MDV 6 MG INJ (09:03)
[2023-09-03] MEDS: iopamidoL 15 ML VIAL 3 ML INJ (09:03)
[2023-09-03] MEDS: BUPIVACAINE 0.25% (PF) VIAL 2 ML INJ (09:04)
[2023-09-03 09:05] VITALS: BP 133/84; PULSE 60; RESP 14; O2SAT 100
[2023-09-03 09:10] VITALS: BP 136/92; PULSE 71; RESP 17; O2SAT 100
--- NOTE | 2023-09-03 09:13 | P.PCN_ITS ---
Date/Time/Diagnoses Date of procedure: 09/03/23 Time of procedure: 09:14 Pre-procedure diagnosis: 1. FORAMINAL STENOSIS WITH LE SYMPTOMS Post-procedure diagnosis: same Procedure Notes Procedure: 1. FLUOROSCOPICALLY GUIDED CONTRAST CONTROLLED TRANSFORAMINAL EPIDURAL STEROID INJECTION - LEFT L4/5 Indications: Akshat is referred for treatment of Foraminal Stenosis with Left LE Symptoms Physician: Zak Dunn Total Fluoroscopy time (seconds): 5 Total sedation minutes: 0 Complications: none Procedure in detail & Post-procedure care: FINDINGS Foraminal Nerve Root Compression secondary to disc disease and facet hypertrophy DESCRIPTION OF PROCEDURE Following review of allergy and review of potential side effects and complications, including, but not necessarily limited to, infection, allergic reaction, local tissue breakdown, stroke, temporary or permanent nerve injury, paralysis, and possible , the patient indicated that the patient understood and agreed to proceed. An informed consent document was signed by the patient, witnessed by a nurse, and placed in the patient's chart. Additionally, other treatment options including medications, modalities, and physical therapy were reviewed with the patient. After review of previous anaesthesic history and IV conscious sedation the patient was deemed safe to proceed with today?s procedure with IV conscious sedation as ASA class II designation. Safety time-out was performed to confirm patient ID, procedure to be performed and site of procedure. IV sedation was not administered by the RN after DO order, titrated to patient comfort during the course of the procedure while the patient remained responsive to all verbal commands In the prone position following sterile prep and drape of the lumbar region, the left L4/5 posterior neuroforamen was identified fluoroscopically. The skin was anesthetized via a 25-gauge 1.5-inch needle with 1% lidocaine solution. At this point, a 25-gauge 3.5-inch spinal needle was atraumatically introduced and advanced under fluoroscopic guidance through the posterior left L4/5 neuroforamen to approximately the anterior aspect of the canal. Depth was confirmed on lateral view. Following negative aspiration, injection of approximately 1.5 cc of Isovue 200 under live fluoroscopy in the AP view confirmed excellent flow along the nerve root, into the epidural space without vascular or intrathecal uptake observed Radiological data, including multiple fluoroscopic views of the lumbosacral spine, reveal a spinal needle at the left L4/5 posterior neuroforamen. Subseq uent views show flow of contrast material flowing superiorly and inferiorly along the nerve root confirming epidural flow. Subsequently, a test dose of 1.5 cc of 1% lidocaine solution was administered and patient was observed for two minutes for signs or symptoms of complications, including abdominal pain, shortness of breath, bilateral upper or lower extremity weakness, nausea and vomiting, prior to steroid injection. At this point, a total of 2cc or 10mg of dexamethasone and 6mg of betamethasone was injected without incident. The procedure tolerated the procedure well without signs or symptoms of complications prior to transfer to the recovery area continued monitoring without incident. The patient was then transferred to the recovery area where they were observed for an appropriate time after the injection. The patient reported a VAS score of 7 prior to the procedure and a post- procedure VAS of 0. POST OP INSTRUCTIONS The patient was provided a Pain Log to continue to record their response to the target-specific procedure prior to follow-up visit with their referring physician. Additionally, specific post-injection care instructions and a contact number to our office were provided if concerns arise regarding possible complications associated with the procedure are suspected.
[2023-09-03 09:15] VITALS: BP 139/76; PULSE 80; RESP 16; O2SAT 98
--- NOTE | 2023-09-03 09:30 | PC.NURSE ---
Discharge: Patient s/p BOBBY injection with Dr. Dunn. Patient with some noted numbness to L leg. Patient stated that he wanted to go so he could go back to the office despite the numbness. Patient able to stand without assistance and march in place with stand-by assist. Patient stated that his drive to work was an hour. 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 Patient transported to car via wheelchair. Patient transferred independently from wheelchair to car with hand holds on car for stabilization. Patient's driving.
== END 2023-09-03 09:20 | disposition home or self-care (01) ==
PROVIDERS: Referring Provider Physical Medicine & Rehabilitation; Visit Provider Physical Medicine & Rehabilitation
DX: M48.061 Spinal stenosis, lumbar region without neurogenic claudication (principal); M51.16 Intervertebral disc disorders with radiculopathy, lumbar region; M47.26 Other spondylosis with radiculopathy, lumbar region
CPT/HCPCS: 64483; J0702; J1100; J3490

== ENCOUNTER 2024-03-10 14:54 | Outpatient (CLI) | payer OTHER, SELFPAY ==
--- NOTE | 2024-03-10 14:56 | DI.RAD.S_ITS ---
PROCEDURE: PAIN L/S TRANSFORAMINAL INJECT INDICATIONS: SPONDYLOSIS COMPARISON: [facility], , PAIN L/S TRANSFORAMINAL INJECT, 09/03/2023, 9:02. FINDINGS/IMPRESSION: Fluoroscopic spot filming was performed to verify placement of spinal needles at the left L4-5 level(s), as labeled on the films. Appropriate location(s) of the needle tip(s) was confirmed by injection of iodinated contrast. Dictated by: Phani Martin M.D. on 03/11/2024 at 10:04 Approved by: Phani Martin M.D. on 03/11/2024 at 10:06
[2024-03-10 15:50] VITALS: BP 125/85; PULSE 68; RESP 16; TEMP 36.3; O2SAT 97
[2024-03-10 16:13] VITALS: BP 132/84; PULSE 69; RESP 18; O2SAT 99
[2024-03-10] MEDS: BUPIVACAINE 0.25% (PF) VIAL 2 ML INJ (16:19)
[2024-03-10] MEDS: BETAMETHASONE 30 MG/5 ML MDV 12 MG INJ (16:19)
[2024-03-10 16:20] VITALS: BP 134/91; PULSE 73; RESP 17; O2SAT 100
[2024-03-10] MEDS: DEXAMETHASONE 10 MG/ML VIAL INJ (16:20)
[2024-03-10] MEDS: iopamidoL 15 ML VIAL 3 ML INJ (16:20)
[2024-03-10 16:25] VITALS: BP 133/89; PULSE 67; RESP 19; O2SAT 100
--- NOTE | 2024-03-10 16:31 | P.PCN_ITS ---
Date/Time/Diagnoses Date of procedure: 03/10/24 Time of procedure: 16:31 Pre-procedure diagnosis: 1. FORAMINAL STENOSIS WITH LE SYMPTOMS Post-procedure diagnosis: same Procedure Notes Procedure: 1. FLUOROSCOPICALLY GUIDED CONTRAST CONTROLLED TRANSFORAMINAL EPIDURAL STEROID INJECTION - LEFT L4/5 Indications: Akshat is referred for treatment of Foraminal Stenosis with Left LE Symptoms Physician: Zak Dunn Total Fluoroscopy time (seconds): 8 Total sedation minutes: 0 Complications: none Procedure in detail & Post-procedure care: FINDINGS Foraminal Nerve Root Compression secondary to disc disease and facet hypertrophy DESCRIPTION OF PROCEDURE Following review of allergy and review of potential side effects and complications, including, but not necessarily limited to, infection, allergic reaction, local tissue breakdown, stroke, temporary or permanent nerve injury, paralysis, and possible , the patient indicated that the patient understood and agreed to proceed. An informed consent document was signed by the patient, witnessed by a nurse, and placed in the patient's chart. Additionally, other treatment options including medications, modalities, and physical therapy were reviewed with the patient. After review of previous anaesthesic history and IV conscious sedation the patient was deemed safe to proceed with today?s procedure with IV conscious sedation as ASA class II designation. Safety time-out was performed to confirm patient ID, procedure to be performed and site of procedure. IV sedation was not administered by the RN after DO order, titrated to patient comfort during the course of the procedure while the patient remained responsive to all verbal commands In the prone position following sterile prep and drape of the lumbar region, the left L4/5 posterior neuroforamen was identified fluoroscopically. The skin was anesthetized via a 25-gauge 1.5-inch needle with 1% lidocaine solution. At this point, a 25-gauge 3.5-inch spinal needle was atraumatically introduced and advanced under fluoroscopic guidance through the posterior left L4/5 neuroforamen to approximately the anterior aspect of the canal. Depth was confirmed on lateral view. Following negative aspiration, injection of approximately 1.5 cc of Isovue 200 under live fluoroscopy in the AP view confirmed excellent flow along the nerve root, into the epidural space without vascular or intrathecal uptake observed Radiological data, including multiple fluoroscopic views of the lumbosacral spine, reveal a spinal needle at the left L4/5 posterior neuroforamen. Subseq uent views show flow of contrast material flowing superiorly and inferiorly along the nerve root confirming epidural flow. Subsequently, a test dose of 1.5 cc of 1% lidocaine solution was administered and patient was observed for two minutes for signs or symptoms of complications, including abdominal pain, shortness of breath, bilateral upper or lower extremity weakness, nausea and vomiting, prior to steroid injection. At this point, a total of 3cc or 10mg of dexamethasone and 12mg of betamethasone was injected without incident. The procedure tolerated the procedure well without signs or symptoms of complications prior to transfer to the recovery area continued monitoring without incident. The patient was then transferred to the recovery area where they were observed for an appropriate time after the injection. The patient reported a VAS score of 7 prior to the procedure and a post- procedure VAS of 1. POST OP INSTRUCTIONS The patient was provided a Pain Log to continue to record their response to the target-specific procedure prior to follow-up visit with their referring physician. Additionally, specific post-injection care instructions and a contact number to our office were provided if concerns arise regarding possible complications associated with the procedure are suspected.
== END 2024-03-10 16:25 | disposition home or self-care (01) ==
LOC: RAD 14:55
PROVIDERS: Referring Provider Physical Medicine & Rehabilitation; Visit Provider Physical Medicine & Rehabilitation
DX: M48.061 Spinal stenosis, lumbar region without neurogenic claudication (principal); M51.16 Intervertebral disc disorders with radiculopathy, lumbar region; M47.26 Other spondylosis with radiculopathy, lumbar region
CPT/HCPCS: 64483; J0702; J1100; J3490

== ENCOUNTER → 2024-09-10 12:03 | Outpatient (CLI) | payer OTHER, SELFPAY | PROVIDERS: Referring Provider Physical Medicine & Rehabilitation; Visit Provider Physical Medicine & Rehabilitation | DX: M51.26 Other intervertebral disc displacement, lumbar region (principal) | CPT/HCPCS: 95886; 95909 ==

== ENCOUNTER 2024-10-27 07:19 | Outpatient (CLI) | payer OTHER, SELFPAY ==
[2024-10-27] VITALS (7 sets, daily range): BP systolic 128–140; BP diastolic 82–92; PULSE 67–86; RESP 16; TEMP 36.6; O2SAT 98–100
[2024-10-27] MEDS: LIDOCAINE 1% 20 ML INJ (08:42)
[2024-10-27] MEDS: DEXAMETHASONE 10 MG/ML VIAL 20 MG INJ (08:57)
[2024-10-27] MEDS: BETAMETHASONE 30 MG/5 ML MDV 12 MG INJ (08:58)
[2024-10-27] MEDS: BUPIVACAINE 0.25% (PF) VIAL 2 ML INJ (08:58)
--- NOTE | 2024-10-27 08:58 | PM.PROC.IR.1 ---
Date/Time/Diagnoses Date of procedure: 10/27/24 Time of procedure: 08:58 Pre-procedure diagnosis: 1. FORAMINAL STENOSIS WITH LE SYMPTOMS Post-procedure diagnosis: same Procedure Notes Procedure: 1. FLUOROSCOPICALLY GUIDED CONTRAST CONTROLLED TRANSFORAMINAL EPIDURAL STEROID INJECTION - BILATERAL L3/4 TFESI Indications: Ed is referred for treatment of Foraminal Stenosis with bilateral LE Symptoms Physician: Zak Dunn Total Fluoroscopy time (seconds): 19 Total sedation minutes: 0 Complications: none Procedure in detail & Post-procedure care: FINDINGS Foraminal Nerve Root Compression secondary to disc disease and facet hypertrophy DESCRIPTION OF PROCEDURE Following review of allergy and review of potential side effects and complications, including, but not necessarily limited to, infection, allergic reaction, local tissue breakdown, stroke, temporary or permanent nerve injury, paralysis, and possible , the patient indicated that the patient understood and agreed to proceed. An informed consent document was signed by the patient, witnessed by a nurse, and placed in the patient's chart. Additionally, other treatment options including medications, modalities, and physical therapy were reviewed with the patient. After review of previous anaesthesic history and IV conscious sedation the patient was deemed safe to proceed with today?s procedure with IV conscious sedation as ASA class II designation. Safety time-out was performed to confirm patient ID, procedure to be performed and site of procedure. IV sedation was not administered by the RN after DO order, titrated to patient comfort during the course of the procedure while the patient remained responsive to all verbal commands In the prone position following sterile prep and drape of the lumbar region, the right L3/4 posterior neuroforamen was identified fluoroscopically. The skin was anesthetized via a 25-gauge 1.5-inch needle with 1% lidocaine solution. At this point, a 25-gauge 3.5-inch spinal needle was atraumatically introduced and advanced under fluoroscopic guidance through the posterior right L3/4 neuroforamen to approximately the anterior aspect of the canal. Depth was confirmed on lateral view. Following negative aspiration, injection of approximately 1.5cc of Isovue 200 under live fluoroscopy in the AP view confirmed excellent flow along the nerve root, into the epidural space without vascular or intrathecal uptake observed Radiological data, including multiple fluoroscopic views of the lumbosacral spine, reveal a spinal needle at the right L3/4 posterior neuroforamen. Subsequent views show flow of contrast material flowing superiorly and inferiorly along the nerve root confirming epidural flow. Subsequently, a test dose of 1.5cc of 1% lidocaine solution was administered and patient was observed for two minutes for signs or symptoms of complications, including abdominal pain, shortness of breath, bilateral upper or lower extremity weakness, nausea and vomiting, prior to steroid injection. At this point, a total of 2cc or 10mg of dexamethasone and 6mg betamethasone was injected without incident. Attention was then refocused to the left L3/4 level where the identical procedure was replicated. The procedure tolerated the procedure well without signs or symptoms of complications prior to transfer to the recovery area continued monitoring without incident. The patient was then transferred to the recovery area where they were observed for an appropriate time after the injection. The patient reported a VAS score of 7 prior to the procedure and a post-procedure VAS of 0. POST OP INSTRUCTIONS The patient was provided a Pain Log to continue to record their response to the target-specific procedure prior to follow-up visit with their referring physician. Additionally, specific post-injection care instructions and a contact number to our office were provided if concerns arise regarding possible complications associated with the procedure are suspected.
[2024-10-27] MEDS: BETAMETHASONE 30 MG/5 ML MDV 6 MG INJ (08:59)
== END 2024-10-27 09:00 | disposition home or self-care (01) ==
LOC: RAD 07:20
PROVIDERS: Referring Provider Physical Medicine & Rehabilitation; Visit Provider Physical Medicine & Rehabilitation
DX: M48.061 Spinal stenosis, lumbar region without neurogenic claudication (principal); M47.26 Other spondylosis with radiculopathy, lumbar region; M51.16 Intervertebral disc disorders with radiculopathy, lumbar region
CPT/HCPCS: 64483; J0702; J1100